=== PATIENT | male | born 1945 | race Caucasian/White ===

== ENCOUNTER 2017-12-27 01:55 | Emergency (ER) | payer OTHER, MEDICARE ==
[2017-12-27 03:25] VITALS: BP 149/98; PULSE 76; TEMP 97.6; BMI 38.7
--- NOTE | 2017-12-27 04:12 | PDOC ---
History of Present Illness - General Chief Complaint: Injury Stated Complaint: BACK PAIN S/P FALL Time Seen by Provider: 12/27/17 04:07 History Source: Patient Exam Limitations: No Limitations - History of Present Illness Initial Comments: 12/27/17 06:13 72-year-old male with history of Parkinson's presents to the emergency department complaining of low back pain. Patient states she tripped on a piece of carpet and slid onto the ground after hitting against the wall. He denied any loss of consciousness, headache, dizziness, Lightheadedness, facial pains, neck pains, chest pain, shortness of breath, abdominal pains, flank pains, urinary symptoms, bladder or bowel dysfunction. Pain is described as 5/10 dull nonradiating intermittent discomfort. Pain is exacerbated on certain movements and alleviated at rest. Occurred: reports: this morning Past History - Past Medical History Allergies/Adverse Reactions: Allergies Allergy/AdvReac Type Severity Reaction Status Date / Time No Known Allergies Allergy Verified 12/27/17 03:24 Home Medications: Ambulatory Orders NK [No Known Home Medication] 12/27/17 Hypercholesterolemia: Yes - Suicide/Smoking/Psychosocial Hx Smoking Status: No Smoking History: Never smoked Have you smoked in the past 12 months: No Number of Cigarettes Smoked Daily: 0 Information on smoking cessation initiated: No Hx Alcohol Use: No Drug/Substance Use Hx: No Substance Use Type: None Hx Substance Use Treatment: No Review of Systems - Review of Systems Able to Perform ROS?: Yes Comments:: 12/27/17 06:15 CONSTITUTIONAL: Absent: fever, chills, diaphoresis, generalized weakness, malaise, loss of appetite HEENT: Absent: rhinorrhea, nasal congestion, throat pain, throat swelling, difficulty swallowing, mouth swelling, ear pain, eye pain, visual Changes CARDIOVASCULAR: Absent: chest pain, loss of consciousness, palpitations, irregular heart rate, peripheral edema RESPIRATORY: Absent: cough, shortness of breath, dyspnea with exertion, orthopnea, wheezing, stridor, hemoptysis GASTROINTESTINAL: Absent: abdominal pain, abdominal distension, nausea, vomiting, diarrhea, constipation, melena, hematochezia GENITOURINARY: Absent: dysuria, frequency, urgency, hesitancy, hematuria, flank pain, genital pain MUSCULOSKELETAL: +left para lum,bar/low back pain Absent: myalgia, arthralgia, joint swelling SKIN: Absent: rash, itching, pallor HEMATOLOGIC/IMMUNOLOGIC: Absent: easy bleeding, easy bruising, lymphadenopathy, frequent infections ENDOCRINE: Absent: unexplained weight gain, unexplained weight loss, heat intolerance, cold intolerance NEUROLOGIC: Absent: headache, focal weakness or paresthesias, dizziness, unsteady gait, seizure, mental status changes, bladder or bowel incontinence PSYCHIATRIC: Absent: anxiety, depression, suicidal or homicidal ideation, hallucinations. Is the patient limited Portuguese proficient: No *Physical Exam - Vital Signs Last Vital Signs Temp Pulse Resp BP Pulse Ox 97.6 F 76 20 149/98 99 12/27/17 02:00 12/27/17 02:00 12/27/17 02:00 12/27/17 02:00 12/27/17 02:00 - Physical Exam Comments: 12/27/17 06:15 GENERAL: Well developed, well nourished. Awake and alert. No acute distress. HEENT: Normocephalic, atraumatic. PERRLA, EOMI. No conjunctival pallor. Sclera are non- icteric. Moist mucous membranes. Oropharynx is clear. NECK: Supple. Full ROM. No JVD. Carotid pulses 2+ and symmetric, without bruits. No thyromegaly. No lymphadenopathy. CARDIOVASCULAR: Regular rate and rhythm. No murmurs, rubs, or gallops. Distal pulses are 2+ and symmetric. PULMONARY: No evidence of respiratory distress. Lungs clear to auscultation bilaterally. No wheezing, rales or rhonchi. ABDOMINAL: Soft. Non-tender. Non-distended. No rebound or guarding. No organomegaly. Normoactive bowel sounds. MUSCULOSKELETAL Normal range of motion at all joints. No bony deformities or tenderness. No CVA tenderness. EXTREMITIES: No cyanosis. No clubbing. No edema. No calf tenderness. SKIN: Warm and dry. Normal capillary refill. No rashes. No jaundice. NEUROLOGICAL: Alert, awake, appropriate. Cranial nerves 2-12 intact. No deficits to light touch and temperature in face, upper extremities and lower extremities. No motor deficits in the in face, upper extremities and lower extremities. Normoreflexic in the upper and lower extremities. Normal speech. Toes are down- going bilaterally. Gait is normal without ataxia. PSYCHIATRIC: Cooperative. Good eye contact. Appropriate mood and affect. ED Treatment Course - RADIOLOGY Radiograph Interpretation: 12/27/17 06:15 Xray LS spine; neg *DC/Admit/Observation/Transfer Diagnosis at time of Disposition: Back pain Qualifiers: Back pain location: low back pain Chronicity: acute Back pain laterality: unspecified Sciatica presence: without sciatica Qualified Code(s): M54.5 - Low back pain - Discharge Dispostion Disposition: HOME Condition at time of disposition: Stable Admit: No - Referrals Referrals: Bartolome Dye MD [Primary Care Provider] - Parminder Yoo MD [Staff Physician] - - Patient Instructions Printed Discharge Instructions: DI for Low Back Pain Additional Instructions: Ice; 20 mins on alternating with 20 mins off for 48 hours while awake. Rest Elevate Follow up with your orthopedic surgeon or the one listed on the discharge form. Return to the ER for severe/persistent/worsening symptoms, extremity numbness/ tingling sensation. - Post Discharge Activity
[2017-12-27] MEDS ORDERED: KETOROLAC TROMETHAMINE 60 MG/2 ML VIAL IM ONE (04:13)
[2017-12-27] MEDS ORDERED: KETOROLAC TROMETHAMINE 60 MG/2 ML VIAL ONE (04:30)
== END 2017-12-27 06:06 | disposition home or self-care (01) ==
LOC: JER 01:55
DX: M54.5 Low back pain (principal); W01.198A Fall on same level from slipping, tripping and stumbling with subsequent striking against other object, initial encounter; Y93.89 Activity, other specified; Y92.038 Other place in apartment as the place of occurrence of the external cause; Y99.8 Other external cause status; I10 Essential (primary) hypertension; J44.9 Chronic obstructive pulmonary disease, unspecified; E78.00 Pure hypercholesterolemia, unspecified; G20 Parkinson's disease
CPT/HCPCS: 72100-TC-FY; 99281-25

== ENCOUNTER 2017-12-28 02:46 | Emergency (ER) | payer OTHER, MEDICARE ==
[2017-12-28 03:08] VITALS: BP 142/86; PULSE 79; TEMP 97.9; BMI 36.4
--- NOTE | 2017-12-28 03:25 | PDOC ---
History of Present Illness - General History Source: Patient Exam Limitations: No Limitations - History of Present Illness Initial Comments: 12/28/17 04:57 Patient is a 72 year old male with a significant past medical history of hypertension, CAD, and Parkinson's disease, who presents to the ED with complaints of left lower back pain that began yesterday afternoon while at home. Patient reports falling in his bathroom yesterday afternoon, landing on the edge molding of the tub causing immediate pain. He reports not taking any medication for pain but does state that he came to the ED for further evaluation last night and was given a pain medication injection and discharged. Patient reports coming to the ED tonight due to the continuation of the pain. He reports being worried about damage being done as he is not sure what organs are in that area that he fell on. Denies chest pain, Sob. Denies nausea, vomiting. Denies fevers, chills. Denies headache, loss of consciousness, head trauma. Denies any other symptoms. Allergies: None Social history: Lives alone No smoking. Former drinker (Last 4 months ago). No illicit drugs. Surgical history: None PMD: None Neurology: Dr. Yoo Technical Applications Scientist: Dr. Dye <Cosmo Lujan - Last Filed: 12/28/17 04:57> <Africa Harrison - Last Filed: 12/28/17 05:56> - General Chief Complaint: Back Pain Stated Complaint: BACK PAIN Time Seen by Provider: 12/28/17 03:11 Past History <Cosmo Lujan - Last Filed: 12/28/17 04:57> - Past Medical History COPD: Yes Hypercholesterolemia: Yes - Immunization History Immunization Up to Date: Yes - Suicide/Smoking/Psychosocial Hx Smoking Status: No Smoking History: Never smoked Have you smoked in the past 12 months: No Number of Cigarettes Smoked Daily: 0 Information on smoking cessation initiated: No Hx Alcohol Use: No Drug/Substance Use Hx: No Substance Use Type: None Hx Substance Use Treatment: No <Africa Harrison - Last Filed: 12/28/17 05:56> - Past Medical History Allergies/Adverse Reactions: Allergies Allergy/AdvReac Type Severity Reaction Status Date / Time No Known Allergies Allergy Verified 12/28/17 02:55 Home Medications: Ambulatory Orders Aspirin [ASA -] 81 mg PO DAILY 12/28/17 Carbidopa/Levodopa/Entacapone [Yxldihpbi-Dhvyjzlq-Fcqg 200 mg] 1 each PO TID 04/09 Docusate Sodium [Dulcolax Stool Softener] 100 mg PO PRN PRN 12/28/17 Furosemide [Lasix -] 40 mg PO DAILY 12/28/17 Lubiprostone [Amitiza] 24 mcg PO DAILY 12/28/17 Pramipexole Dihydrochloride [Mirapex -] 0.5 mg PO QID 12/28/17 Rosuvastatin [Crestor -] 5 mg PO HS 12/28/17 Review of Systems - Review of Systems Able to Perform ROS?: Yes Comments:: 12/28/17 04:58 GENERAL/CONSTITUTIONAL: No fever or chills. No weakness. HEAD, EYES, EARS, NOSE AND THROAT: No change in vision. No ear pain or discharge. No sore throat. CARDIOVASCULAR: No chest pain or shortness of breath. RESPIRATORY: No cough, wheezing, or hemoptysis. GASTROINTESTINAL: No nausea, vomiting, diarrhea or constipation. GENITOURINARY: No dysuria, frequency, or change in urination. MUSCULOSKELETAL: +Lower left back pain. No joint or muscle swelling or pain. No neck pain. SKIN: No rash NEUROLOGIC: No headache, vertigo, loss of consciousness, or change in strength/ sensation. ENDOCRINE: No increased thirst. No abnormal weight change. HEMATOLOGIC/LYMPHATIC: No anemia, easy bleeding, or history of blood clots. ALLERGIC/IMMUNOLOGIC: No hives or skin allergy. All Other Systems: Reviewed and Negative <Cosmo Lujan - Last Filed: 12/28/17 04:57> *Physical Exam - Vital Signs Last Vital Signs Temp Pulse Resp BP Pulse Ox 97.9 F 79 20 142/86 98 12/28/17 02:48 12/28/17 02:48 12/28/17 02:48 12/28/17 02:48 12/28/17 02:48 - Physical Exam Comments: 12/28/17 04:58 GENERAL: Awake, alert, and fully oriented, in no acute distress HEAD: No signs of trauma EYES: PERRLA, EOMI, sclera anicteric, conjunctiva clear ENT: Auricles normal inspection, hearing grossly normal, nares patent, oropharynx clear without exudates. Moist mucosa NECK: Normal ROM, supple, no lymphadenopathy, JVD, or masses LUNGS: Breath sounds equal, clear to auscultation bilaterally. No wheezes, and no crackles HEART: Regular rate and rhythm, normal S1 and S2, no murmurs, rubs or gallops ABDOMEN: +Left Lower ribs tender to palpation Soft, nontender, normoactive bowel sounds. No guarding, no rebound. No masses BACK: +Pleuritic back pain. No midline tenderness. No spinal tenderness. No flank tenderness. No tenderness on percussion and palpation. EXTREMITIES: Normal range of motion, no edema. No clubbing or cyanosis. No cords, erythema, or tenderness NEUROLOGICAL: Cranial nerves II through XII grossly intact. Normal speech, normal gait SKIN: Warm, Dry, normal turgor, no rashes or lesions noted. <Cosmo Lujan - Last Filed: 12/28/17 04:57> - Vital Signs Last Vital Signs Temp Pulse Resp BP Pulse Ox 97.9 F 79 20 142/86 98 12/28/17 02:48 12/28/17 02:48 12/28/17 02:48 12/28/17 02:48 12/28/17 02:48 <Africa Hrarison - Last Filed: 12/28/17 05:56> ED Treatment Course - LABORATORY CBC & Chemistry Diagram: 12/28/17 03:40 12/28/17 03:40 - ADDITIONAL ORDERS Additional order review: Laboratory Results 12/28/17 12/28/17 03:40 03:40 PT with INR 12.80 H INR 1.13 Sodium 140 Potassium 4.4 Chloride 102 Carbon Dioxide 32 Anion Gap 6 L BUN 27 H D Creatinine 1.1 Creat Clearance w eGFR > 60 Random Glucose 104 D Calcium 8.7 Total Bilirubin 2.2 H D AST 32 D ALT 12 D Alkaline Phosphatase 76 D Total Protein 7.6 Albumin 3.8 12/28/17 03:40 RBC 4.97 MCV 85.1 MCHC 33.9 RDW 13.6 MPV 7.7 Neutrophils % 79.3 D Lymphocytes % 12.4 D Monocytes % 6.2 Eosinophils % 1.4 Basophils % 0.7 - Medications Given in the ED: ED Medications Discontinued Medications Generic Name Dose Route Start Last Admin Trade Name Freq PRN Reason Stop Dose Admin Oxycodone/Acetaminophen 2 combo 12/28/17 03:32 12/28/17 04:19 Percocet 5/325 - PO 12/28/17 03:33 2 combo ONCE ONE Administration <Cosmo Lujan - Last Filed: 12/28/17 04:57> - LABORATORY CBC & Chemistry Diagram: 12/28/17 03:40 12/28/17 03:40 <Africa Harrison - Last Filed: 12/28/17 05:56> Medical Decision Making - Medical Decision Making 12/28/17 04:19 Patient Name: ALINA BERGER THIS IS A PRELIMINARY REPORT FROM [facility] DATE OF SERVICE: 2017-12-28 03:48:41 IMAGES: [id number] EXAM: CHEST CT WITHOUT CONTRAST HISTORY: Status post fall COMPARISON: None. FINDINGS: There is no aortic aneurysm. No mediastinal hematoma. There is no significant mediastinal or hilar adenopathy. The heart size is normal. The trachea and bronchi are patent. There is no pleural or pericardial effusion. The lungs are clear. There is no pneumothorax. Please refer to separate report of CT abdomen for abdominal findings. There are no fractures. IMPRESSION: No evidence of acute traumatic pathology in the thorax. 12/28/17 04:27 Patient Name: ALINA BERGER THIS IS A PRELIMINARY REPORT FROM [facility] DATE OF SERVICE: 2017-12-28 03:51:34 IMAGES: [id number] EXAM: ABDOMEN \T\ PELVIS CT W/O CONTR HISTORY: Ileus or obstruction COMPARISON: None. FINDINGS: Lung bases are clear. The visualized cardiac chambers are normal size and configuration. There are gallstones but no gallbladder inflammation. Normal unenhanced liver, pancreas, spleen, adrenal glands and kidneys. The stomach and abdominal small and large bowel are notable only for moderately prominent colonic stool and gas. There is no aortic aneurysm. There is no significant retroperitoneal lymphadenopathy. Mild mesenteric panniculitis is likely an incidental finding. The pelvic small and large bowel are normal. The appendix is normal. The urinary bladder and prostate gland are normal. No pelvic free fluid is identified. There is no significant pelvic lymphadenopathy. Small fat containing bilateral inguinal hernias are noted. There is a grade 1 anterolisthesis of L5 on S1 with degenerative changes of the distal epidural bilateral L5 pars defects. IMPRESSION: Gallstones. No bowel obstruction or ileus. Moderately prominent colonic stool and gas. THIS DOCUMENT HAS BEEN ELECTRONICALLY SIGNED 12/28/17 05:56 Labs normal; exam normal; imaging normal. <Africa Harrison - Last Filed: 12/28/17 05:56> *DC/Admit/Observation/Transfer - Attestations Scribe Attestion: 12/28/17 04:58 Documentation prepared by Cosmo Lujan, acting as medical assistant secretary for Africa Harrison MD/DO. <Cosmo Lujan - Last Filed: 12/28/17 04:57> - Discharge Dispostion Admit: No <Africa Harrison - Last Filed: 12/28/17 05:56> Diagnosis at time of Disposition: Musculoskeletal pain - Discharge Dispostion Disposition: HOME Condition at time of disposition: Stable - Patient Instructions Printed Discharge Instructions: DI for Musculoskeletal Pain
[2017-12-28 03:55] LABS: BASO % 0.7 % (0-2.0); EOS % 1.4 % (0-4.5); HEMATOCRIT 42.3 % (35.4-49); HEMOGLOBIN 14.3 GM/dL (11.7-16.9); LYMPH % 12.4 % (8-40); MCH 28.8 pg (25.7-33.7); MCHC 33.9 g/dl (32.0-35.9); MEAN CELL VOLUME 85.1 fl (80-96); MEAN PLT VOLUME 7.7 fl (7.5-11.1); MONO % 6.2 % (3.8-10.2); NEUT % 79.3 % (42.8-82.8); PLATELET COUNT 217 K/MM3 (134-434); RBC 4.97 M/mm3 (4.00-5.60); RDW 13.6 % (11.9-15.9); WHITE BLOOD COUNT 9.2 K/mm3 (4.0-10.0)
[2017-12-28 04:12] LABS: INR 1.13 (0.82-1.09); PROTHROMBIN TIME (PATIENT) 12.8 SEC (9.98-11.88)
[2017-12-28 04:48] LABS: ALBUMIN 3.8 g/dl (3.4-5.0); ALK PHOS 76 U/L (45-117); ANION GAP 6 (8-16); BILIRUBIN,TOTAL 2.2 mg/dL (0.2-1.0); BLOOD UREA NITROGEN 27 mg/dL (7-18); CALCIUM 8.7 mg/dL (8.5-10.1); CHLORIDE 102 mmol/L (98-107); CO2 32 mmol/L (21-32); CREATININE 1.1 mg/dL (0.7-1.3); GLUCOSE,RANDOM 104 mg/dL (74-106); SGPT/ALT 12 U/L (12-78); SODIUM 140 mmol/L (136-145); TOT PROT 7.6 g/dl (6.4-8.2)
[2017-12-28 04:52] LABS: POTASSIUM 4.4 mmol/L (3.5-5.1); SGOT/AST 32 U/L (15-37)
== END 2017-12-28 05:55 | disposition home or self-care (01) ==
LOC: JER 02:46
DX: M54.5 Low back pain (principal); R07.81 Pleurodynia; R07.89 Other chest pain; W01.198D Fall on same level from slipping, tripping and stumbling with subsequent striking against other object, subsequent encounter; Y92.031 Bathroom in apartment as the place of occurrence of the external cause; I10 Essential (primary) hypertension; E78.00 Pure hypercholesterolemia, unspecified; I25.10 Atherosclerotic heart disease of native coronary artery without angina pectoris; G20 Parkinson's disease; J44.9 Chronic obstructive pulmonary disease, unspecified
CPT/HCPCS: 36415; 71250-TC; 74176-TC; 80053; 85025; 85610; 99283-25